=== PATIENT | male | born 1955 | race Caucasian/White ===

== ENCOUNTER 2017-09-19 06:08 | Day surgery (SDC) | payer OTHER ==
[~2017-09-19 06:08] MED LIST: BROMFENAC SODIUM 1.7 ML OPH DROP OPER; CYCLOPENTOLATE 2% 2 ML OPH OPER; LIDOCAINE 3.5% GEL TUBE OPER; MOXIFLOXACIN 0.5% 3 ML OPH OPER; PHENYLephrine 10% 5 ML OPH OPER; TETRACAINE 0.5% 4 ML OPH OPER; TROPICAMIDE 1% 3 ML OPH OPER
[2017-09-19] MEDS ORDERED: LIDOCAINE 1%/EPI 30 ML INJ (06:50)
[2017-09-19] MEDS ORDERED: CARBACHOL 0.01% 1.5 ML OPH INJ (06:50)
[2017-09-19] MEDS ORDERED: TOBRAMYCIN 0.3% 3.5 GM OPH OINT (06:50)
[2017-09-19] MEDS ORDERED: NA HYALURONATE/CHONDROITIN 0.5 ML SYG (06:51)
[2017-09-19] MEDS ORDERED: EPINEPHrine 1 MG INJ (06:51)
[2017-09-19] MEDS: PHENYLephrine 10% 5 ML OPH OPER (06:54)
[2017-09-19] MEDS: BROMFENAC SODIUM 1.7 ML OPH DROP OPER (06:55)
[2017-09-19] MEDS: CYCLOPENTOLATE 2% 2 ML OPH OPER (06:55)
[2017-09-19] MEDS: TROPICAMIDE 1% 3 ML OPH OPER (06:56)
[2017-09-19] MEDS: MOXIFLOXACIN 0.5% 3 ML OPH OPER (06:56)
[2017-09-19] MEDS: LIDOCAINE 3.5% GEL TUBE OPER (06:57)
[2017-09-19] MEDS: TETRACAINE 0.5% 4 ML OPH OPER (06:57)
[2017-09-19] MEDS: LACTATED RINGER'S 1,000 ML IV (07:10)
[2017-09-19] MEDS: NA HYALURONATE/CHONDROITIN 0.5 ML SYG RIGHT EYE (07:35)
[2017-09-19] MEDS: LIDOCAINE 1%/EPI 30 ML INJ INJ (07:35)
[2017-09-19] MEDS ORDERED: TRYPAN BLUE 0.5 ML SYG IO (07:48)
[2017-09-19] MEDS ORDERED: CEFAZOLIN 1 GM INJ (09:28)
[2017-09-19] MEDS: CARBACHOL 0.01% 1.5 ML OPH INJ RIGHT EYE (09:36)
[2017-09-19] MEDS ORDERED: FENTAnyl 50 MCG/ML VIAL (09:43)
== END 2017-09-19 11:24 | disposition home or self-care (01) ==
LOC: SDS 06:08
DX: H25.21 Age-related cataract, morgagnian type, right eye (principal); E11.9 Type 2 diabetes mellitus without complications; I10 Essential (primary) hypertension; E78.5 Hyperlipidemia, unspecified
CPT/HCPCS: 66984; 82962